=== PATIENT | female | born 1985 | race African-American/Black ===

== ENCOUNTER 2016-05-27 21:12 | Inpatient (IN) | payer MEDICAID ==
[~2016-05-27] VITALS: Ht 182.9 cm; Wt 85.5 kg
[~2016-05-27 21:12] MED LIST: CARI-277 PO; FOLI1TAB6 PO; NOR10T PO; NORT25CA PO; ONDA4TAB5 PO
[2016-05-27 22:11] LABS: Basophils # (auto) 0.1 uL; Basophils % (auto) 0.9 % (0.0-2.0); DEFINITIVE VIEW TRANSMISSION; Eosinophils # (auto) 0.1 uL; Eosinophils % (auto) 0.9 % (0.0-7.0); Hematocrit 37.8 % (36.0-46.0); Hemoglobin 12.1 g/dL (12.2-16.2); Lymphocytes # (auto) 1.2 uL; Lymphocytes % (auto) 18.4 % (10.0-50.0); Mean Corpuscular Hemoglobin 24.3 pg (28.0-32.0); Mean Corpuscular Hgb Conc. 31.9 g/dL (32.0-36.0); Mean Corpuscular Volume 76.3 fL (80.0-100.0); Mean Platelet Volume 11.3 fL (7.4-10.4); Monocytes # (auto) 0.7 uL; Monocytes % (auto) 11.2 % (0.0-12.0); Neutrophils # (auto) 4.3 uL; Neutrophils % (auto) 68.6 % (37.0-80.0); Platelet Count (auto) 244 10^3/uL (140-450); Red Cell Distribution Width 16.7 % (11.6-16.0); SUSPECT VIEW TRANSMISSION; White Blood Cell 6.3 10^3/uL (4.4-10.8)
[2016-05-27 22:26] LABS: Albumin 3.6 g/dL (3.4-5.0); BUN/Creatinine Ratio 4.8; Calcium 8.6 mg/dL (8.5-10.1); Magnesium 2.1 mg/dL (1.6-2.6); Potassium 3.5 mmol/L (3.5-5.1); Total Protein 7.5 g/dL (6.4-8.2)
[2016-05-28] VITALS (7 sets, daily range): BP systolic 98–121; BP diastolic 44–84
[2016-05-28] MEDS ORDERED: SODIUM CHLORIDE 0.9% 1,000 ML IV ONE (01:21)
[2016-05-28] MEDS ORDERED: SODIUM CHLORIDE 0.9% 250 ML IV ONE (01:21)
[2016-05-28] MEDS ORDERED: ONDANSETRON HCL 4 MG/2 ML VIAL IV ONE (01:30)
[2016-05-28] MEDS ORDERED: MORPHINE SULFATE 4 MG/ML SYRG IV ONE (01:30)
[2016-05-28] MEDS ORDERED: HYDROmorphone HCL 2 MG/ML VL IV ONE ×2 (03:00→10:30)
[2016-05-28] MEDS ORDERED: HYDROcodone-ACET 5/325MG TAB PO PRN (04:30)
[2016-05-28] MEDS ORDERED: CARISOPRODOL 350 MG TAB PO PRN (04:30)
[2016-05-28] MEDS ORDERED: ONDANSETRON HCL 4 MG/2 ML VIAL IV PRN (04:30)
[2016-05-28] MEDS ORDERED: ACETAMINOPHEN 325 MG TAB PO PRN (04:30)
[2016-05-28] MEDS ORDERED: TEMAZEPAM 15 MG CAP PO PRN (04:30)
[2016-05-28] MEDS: SODIUM CHLORIDE 0.9% 1,000 ML IV SCH ×2 (04:35→17:58)
[2016-05-28] MEDS: KETOROLAC TROMETH 30 MG/ML 1ML VIAL IV PRN ×2 (08:03→23:27)
[2016-05-28] MEDS: FAMOTIDINE 20 MG TAB PO SCH ×2 (13:35→22:23)
[2016-05-28] MEDS: FOLIC ACID 1 MG TAB PO SCH (13:35)
[2016-05-28] MEDS ORDERED: AZITHROMYCIN 250 MG TAB PO ONE (13:45)
[2016-05-28] MEDS: HYDROmorphone HCL 2 MG/ML VL IV PRN ×2 (15:18→20:44)
[2016-05-28] MEDS: guaiFENesin-DEXTROMETHORPHAN 5ML SYR PO PRN ×2 (15:18→20:42)
[2016-05-28] MEDS: NORTRIPTYLINE HCL 10 MG CAP PO SCH (22:24)
[2016-05-29] MEDS: HYDROmorphone HCL 2 MG/ML VL IV PRN ×5 (02:09→21:32)
[2016-05-29 05:00] VITALS: BP 109/53
[2016-05-29 06:03] LABS: Basophils # (auto) 0 uL; Basophils % (auto) 0.7 % (0.0-2.0); DEFINITIVE VIEW TRANSMISSION; Eosinophils # (auto) 0.1 uL; Eosinophils % (auto) 2.8 % (0.0-7.0); Hematocrit 32.7 % (36.0-46.0); Hemoglobin 10.4 g/dL (12.2-16.2); Lymphocytes # (auto) 1.2 uL; Lymphocytes % (auto) 32.3 % (10.0-50.0); Mean Corpuscular Hemoglobin 24.8 pg (28.0-32.0); Mean Corpuscular Hgb Conc. 31.7 g/dL (32.0-36.0); Mean Corpuscular Volume 78.3 fL (80.0-100.0); Mean Platelet Volume 11.6 fL (7.4-10.4); Monocytes # (auto) 0.5 uL; Monocytes % (auto) 14.2 % (0.0-12.0); Neutrophils # (auto) 1.9 uL; Platelet Count (auto) 187 10^3/uL (140-450); Red Cell Distribution Width 16.2 % (11.6-16.0); White Blood Cell 3.8 10^3/uL (4.4-10.8)
[2016-05-29 06:26] LABS: Potassium 3.6 mmol/L (3.5-5.1)
[2016-05-29 06:31] LABS: Albumin 2.8 g/dL (3.4-5.0); BUN/Creatinine Ratio 7.1; Calcium 7.9 mg/dL (8.5-10.1); Magnesium 2.2 mg/dL (1.6-2.6)
[2016-05-29 06:43] LABS: Bilirubin, Total 1.5 mg/dL (0.2-1.0); Total Protein 6.1 g/dL (6.4-8.2)
[2016-05-29 08:46] VITALS: BP 128/73
[2016-05-29] MEDS: SODIUM CHLORIDE 0.9% 1,000 ML IV SCH ×2 (09:21→20:43)
[2016-05-29] MEDS: AZITHROMYCIN 250 MG TAB PO SCH (09:21)
[2016-05-29] MEDS: FOLIC ACID 1 MG TAB PO SCH (09:22)
[2016-05-29] MEDS: FAMOTIDINE 20 MG TAB PO SCH ×2 (09:22→21:32)
[2016-05-29 11:54] VITALS: BP 132/76
[2016-05-29 16:28] VITALS: BP 116/80
[2016-05-29 20:00] VITALS: BP 138/87
[2016-05-29] MEDS: guaiFENesin-DEXTROMETHORPHAN 5ML SYR PO PRN (21:32)
[2016-05-29] MEDS: NORTRIPTYLINE HCL 10 MG CAP PO SCH (21:32)
[2016-05-29 22:02] VITALS: BP 138/87
[2016-05-30] MEDS: HYDROmorphone HCL 2 MG/ML VL IV PRN ×3 (02:04→12:00)
[2016-05-30 05:00] VITALS: BP 114/63
[2016-05-30] MEDS: SODIUM CHLORIDE 0.9% 1,000 ML IV SCH (05:57)
[2016-05-30 06:03] LABS: Basophils # (auto) 0 uL; Basophils % (auto) 0.4 % (0.0-2.0); DEFINITIVE VIEW TRANSMISSION; Eosinophils # (auto) 0.1 uL; Eosinophils % (auto) 2.2 % (0.0-7.0); Hematocrit 33.4 % (36.0-46.0); Hemoglobin 10.7 g/dL (12.2-16.2); Lymphocytes # (auto) 1.7 uL; Lymphocytes % (auto) 45.1 % (10.0-50.0); Mean Corpuscular Hemoglobin 24.6 pg (28.0-32.0); Mean Corpuscular Hgb Conc. 31.9 g/dL (32.0-36.0); Mean Corpuscular Volume 77.2 fL (80.0-100.0); Mean Platelet Volume 11.4 fL (7.4-10.4); Monocytes # (auto) 0.4 uL; Monocytes % (auto) 10.4 % (0.0-12.0); Neutrophils # (auto) 1.6 uL; Neutrophils % (auto) 41.9 % (37.0-80.0); Platelet Count (auto) 203 10^3/uL (140-450); Red Cell Distribution Width 16.1 % (11.6-16.0); SUSPECT VIEW TRANSMISSION; White Blood Cell 3.9 10^3/uL (4.4-10.8)
[2016-05-30 06:27] LABS: Bilirubin, Total 1.1 mg/dL (0.2-1.0); Total Protein 6.3 g/dL (6.4-8.2)
[2016-05-30 06:28] LABS: Bilirubin, Direct 0.3 mg/dL (0-0.2)
[2016-05-30 08:15] VITALS: BP 120/74
[2016-05-30] MEDS: AZITHROMYCIN 250 MG TAB PO SCH (09:44)
[2016-05-30] MEDS: FOLIC ACID 1 MG TAB PO SCH (09:45)
[2016-05-30] MEDS: FAMOTIDINE 20 MG TAB PO SCH (09:45)
[2016-05-30] MEDS ORDERED: AZI250T PO (13:37)
== END 2016-05-30 14:59 | disposition home or self-care (01) | DRG 662 ==
LOC: ER 21:28 → OVERFLOW 21:29 → WEST WING 05-28 05:13
PROVIDERS: ADMIT Nurse Practitioner; ATTEND Internal Medicine
DX: D57.00 Hb-SS disease with crisis, unspecified (principal); E86.0 Dehydration; F17.210 Nicotine dependence, cigarettes, uncomplicated; J20.9 Acute bronchitis, unspecified; Z82.49 Family history of ischemic heart disease and other diseases of the circulatory system; Z83.3 Family history of diabetes mellitus; Z90.49 Acquired absence of other specified parts of digestive tract; Z71.6 Tobacco abuse counseling
CPT/HCPCS: 36415; 71020; 80053; 80076; 83735; 84484; 84702; 85025; 85045; 85652; 96361; 96374; 96375; 96376; J1885; J2405

== ENCOUNTER 2016-10-01 14:51 | Inpatient (IN) | payer MEDICAID ==
[~2016-10-01] VITALS: Ht 185.4 cm; Wt 93.4 kg
[~2016-10-01 14:51] MED LIST changes: +AZI250T PO; -CARI-277 PO; -NOR10T PO; -NORT25CA PO; -ONDA4TAB5 PO
[2016-10-01 16:03] LABS: Basophils # (auto) 0.1 uL; Basophils % (auto) 0.9 % (0.0-2.0); CONDITION Y; DEFINITIVE Y; Eosinophils # (auto) 0.2 uL; Eosinophils % (auto) 2.2 % (0.0-7.0); Hematocrit 36.1 % (36.0-46.0); Hemoglobin 11.6 g/dL (12.2-16.2); Lymphocytes % (auto) 23.7 % (10.0-50.0); Mean Corpuscular Hemoglobin 24.9 pg (28.0-32.0); Mean Corpuscular Hgb Conc. 32.3 g/dL (32.0-36.0); Mean Corpuscular Volume 77.1 fL (80.0-100.0); Mean Platelet Volume 11.5 fL (7.4-10.4); Monocytes # (auto) 0.4 uL; Neutrophils # (auto) 5.7 uL; Neutrophils % (auto) 68.2 % (37.0-80.0); Platelet Count (auto) 249 10^3/uL (140-450); SUSPECT Y; White Blood Cell 8.3 10^3/uL (4.4-10.8)
[2016-10-01 16:17] LABS: Albumin 3.6 g/dL (3.4-5.0); BUN/Creatinine Ratio 9.1; Calcium 8.4 mg/dL (8.5-10.1)
[2016-10-01 16:20] LABS: Total Protein 7.2 g/dL (6.4-8.2)
[2016-10-01] MEDS ORDERED: SODIUM CHLORIDE 0.9% 1,000 ML IVB ONE (20:24)
[2016-10-01] MEDS ORDERED: ONDANSETRON HCL 4 MG/2 ML VIAL IV ONE (20:30)
[2016-10-01] MEDS ORDERED: HYDROmorphone HCL 2 MG/ML VL IV ONE (20:30)
[2016-10-01] MEDS ORDERED: SODIUM CHLORIDE 0.9% 1,000 ML IV ONE (20:45)
[2016-10-01] MEDS ORDERED: ACETAMINOPHEN 325 MG TAB PO PRN (22:00)
[2016-10-01] MEDS ORDERED: TEMAZEPAM 15 MG CAP PO PRN (22:00)
[2016-10-01] MEDS ORDERED: MORPHINE SULF INJ 2 MG/ML SYRINGE 1ML IV PRN (22:00)
[2016-10-01 22:02] LABS: INR 1.01 (0.9-1.15); Partial Thromboplastin Time 27.1 sec (22.64-33.71)
[2016-10-01] MEDS: ENOXAPARIN SOD 40 MG/0.4 ML SYRINGE SC SCH (23:02)
[2016-10-01] MEDS: FAMOTIDINE 20 MG TAB PO SCH (23:02)
[2016-10-01] MEDS: SODIUM CHLORIDE 0.9% 1,000 ML IV SCH (23:10)
[2016-10-01 23:35] VITALS: BP 139/86
[2016-10-01 23:48] LABS: Urine Bilirubin Negative (Negative); Urine Blood Negative /uL (Negative); Urine Color Yellow (Yellow); Urine Glucose Normal (Normal); Urine Ketone Negative (Negative); Urine Nitrite Negative (Negative); Urine RBC <1 /hpf (0 - 4); Urine Squamous Epithelial Cell FEW /hpf (<5); Urine Urobilinogen Normal (Negative)
[2016-10-02] VITALS (7 sets, daily range): BP systolic 119–141; BP diastolic 63–86
[2016-10-02] MEDS: MORPHINE SULF INJ 2 MG/ML SYRINGE 1ML IV PRN ×3 (00:46→05:55)
[2016-10-02] MEDS: ONDANSETRON HCL 4 MG/2 ML VIAL IV PRN ×3 (00:47→05:55)
[2016-10-02] MEDS: FAMOTIDINE 20 MG TAB PO SCH ×2 (09:41→21:05)
[2016-10-02] MEDS: ENOXAPARIN SOD 40 MG/0.4 ML SYRINGE SC SCH (09:41)
[2016-10-02] MEDS: SODIUM CHLORIDE 0.9% 1,000 ML IV SCH ×2 (09:49→23:23)
[2016-10-02] MEDS ORDERED: MONTELUKAST SODIUM 10 MG TAB PO ONE (12:00)
[2016-10-02] MEDS: HYDROmorphone HCL 2 MG/ML VL IV PRN ×3 (12:34→21:05)
[2016-10-02 13:13] LABS: Basophils # (auto) 0 uL; Basophils % (auto) 0.5 % (0.0-2.0); CONDITION Y; DEFINITIVE Y; Eosinophils # (auto) 0.1 uL; Eosinophils % (auto) 2.1 % (0.0-7.0); Hematocrit 34.1 % (36.0-46.0); Hemoglobin 11.2 g/dL (12.2-16.2); Lymphocytes # (auto) 1.2 uL; Lymphocytes % (auto) 17.4 % (10.0-50.0); Mean Corpuscular Hemoglobin 25.2 pg (28.0-32.0); Mean Corpuscular Hgb Conc. 32.9 g/dL (32.0-36.0); Mean Corpuscular Volume 76.6 fL (80.0-100.0); Mean Platelet Volume 11.2 fL (7.4-10.4); Monocytes # (auto) 0.4 uL; Monocytes % (auto) 5.5 % (0.0-12.0); Neutrophils # (auto) 5.3 uL; Neutrophils % (auto) 74.5 % (37.0-80.0); Platelet Count (auto) 212 10^3/uL (140-450); SUSPECT Y; White Blood Cell 7.1 10^3/uL (4.4-10.8)
[2016-10-02 13:22] LABS: BUN/Creatinine Ratio 8.8; Calcium 8.2 mg/dL (8.5-10.1)
[2016-10-03] MEDS: HYDROmorphone HCL 2 MG/ML VL IV PRN ×5 (01:37→20:43)
[2016-10-03 05:00] VITALS: BP 145/75
[2016-10-03 06:53] LABS: Basophils # (auto) 0 uL; Basophils % (auto) 0.5 % (0.0-2.0); CONDITION AutoValidated; DEFINITIVE SEE PRINTOUT; Eosinophils # (auto) 0.2 uL; Eosinophils % (auto) 2.5 % (0.0-7.0); Hematocrit 32.9 % (36.0-46.0); Hemoglobin 10.9 g/dL (12.2-16.2); Lymphocytes # (auto) 0.9 uL; Lymphocytes % (auto) 12.7 % (10.0-50.0); Mean Corpuscular Hgb Conc. 33.3 g/dL (32.0-36.0); Mean Platelet Volume 11.6 fL (7.4-10.4); Monocytes # (auto) 0.4 uL; Monocytes % (auto) 5.1 % (0.0-12.0); Neutrophils # (auto) 5.9 uL; Neutrophils % (auto) 79.2 % (37.0-80.0); Platelet Count (auto) 229 10^3/uL (140-450); Red Cell Distribution Width 16.4 % (11.6-16.0); SUSPECT SEE PRINTOUT; White Blood Cell 7.4 10^3/uL (4.4-10.8)
[2016-10-03 07:17] LABS: Albumin 3.4 g/dL (3.4-5.0); Calcium 8.1 mg/dL (8.5-10.1); Potassium 4.2 mmol/L (3.5-5.1)
[2016-10-03 07:38] LABS: Total Protein 6.7 g/dL (6.4-8.2)
[2016-10-03 08:00] VITALS: BP 133/90
[2016-10-03 09:00] VITALS: BP 133/90
[2016-10-03] MEDS: ENOXAPARIN SOD 40 MG/0.4 ML SYRINGE SC SCH (10:08)
[2016-10-03] MEDS: FAMOTIDINE 20 MG TAB PO SCH ×2 (10:08→22:36)
[2016-10-03] MEDS: SODIUM CHLORIDE 0.9% 1,000 ML IV SCH (11:29)
[2016-10-03 13:00] VITALS: BP 117/71
[2016-10-03] MEDS: HYDROcodone-ACET 5/325MG TAB PO PRN ×3 (13:05→22:36)
[2016-10-03 17:00] VITALS: BP 105/59
[2016-10-03 22:00] VITALS: BP 130/74
[2016-10-04] MEDS: SODIUM CHLORIDE 0.9% 1,000 ML IV SCH ×2 (00:13→22:35)
[2016-10-04] MEDS: HYDROmorphone HCL 2 MG/ML VL IV PRN ×6 (00:13→21:08)
[2016-10-04 04:52] VITALS: BP 132/77
[2016-10-04 08:00] VITALS: BP 132/77
[2016-10-04 09:00] VITALS: BP 151/70
[2016-10-04] MEDS: FAMOTIDINE 20 MG TAB PO SCH ×2 (09:22→21:08)
[2016-10-04] MEDS: ENOXAPARIN SOD 40 MG/0.4 ML SYRINGE SC SCH (09:22)
[2016-10-04] MEDS: HYDROcodone-ACET 5/325MG TAB PO PRN (10:59)
[2016-10-04 13:00] VITALS: BP_SYST 113; BP_SYST 125; BP_DIAS 62; BP_DIAS 79
[2016-10-04 22:00] VITALS: BP 133/79
[2016-10-05] MEDS: HYDROmorphone HCL 2 MG/ML VL IV PRN ×3 (00:11→13:31)
[2016-10-05] MEDS: SODIUM CHLORIDE 0.9% 1,000 ML IV SCH (05:55)
[2016-10-05 06:00] VITALS: BP 134/78
[2016-10-05 08:00] VITALS: BP 125/85
[2016-10-05 09:00] VITALS: BP_SYST 129; BP_SYST 134; BP_DIAS 64; BP_DIAS 85
[2016-10-05] MEDS ORDERED: FOLIC ACID 1 MG TAB PO SCH (10:00)
[2016-10-05] MEDS: FAMOTIDINE 20 MG TAB PO SCH (10:19)
[2016-10-05] MEDS: ENOXAPARIN SOD 40 MG/0.4 ML SYRINGE SC SCH (10:19)
[2016-10-05 13:00] VITALS: BP 126/72
[2016-10-05 14:09] VITALS: BP 129/65
== END 2016-10-05 14:55 | disposition home or self-care (01) | DRG 662 ==
LOC: ER 14:51 → OVERFLOW 14:52 → WEST WING 23:35
PROVIDERS: ADMIT Internal Medicine; ATTEND Family Medicine
DX: D57.00 Hb-SS disease with crisis, unspecified (principal); F17.210 Nicotine dependence, cigarettes, uncomplicated; D63.8 Anemia in other chronic diseases classified elsewhere; Z82.49 Family history of ischemic heart disease and other diseases of the circulatory system; Z83.3 Family history of diabetes mellitus; Z90.49 Acquired absence of other specified parts of digestive tract; Z71.89 Other specified counseling
CPT/HCPCS: 36415; 71010; 80048; 80053; 81001; 81025; 83735; 85025; 85610; 85730; 94761; 96361; 96374; 96375; J2405

== ENCOUNTER 2018-01-21 23:12 | Emergency (ER) | payer MEDICAID ==
[~2018-01-21] VITALS: Ht 182.9 cm; Wt 95.3 kg
[~2018-01-21 23:12] MED LIST changes: -AZI250T PO; +AZIT250T8 PO
[2018-01-21 23:30] VITALS: BP 153/88
[2018-01-21 23:55] LABS: Urine Bacteria NONE SEEN /hpf (None Seen); Urine Blood Negative /uL (Negative); Urine Specific Gravity 1.007 (1.001-1.035); Urine WBC 2 /hpf (0 - 5)
[2018-01-22] MEDS ORDERED: AZITHROMYCIN 250 MG TAB PO ONE (01:15)
[2018-01-22] MEDS ORDERED: PHENAZOPYRIDINE HCL 100 MG TAB PO ONE (01:15)
[2018-01-22] MEDS ORDERED: cefTRIAXone SOD 1,000 MG VL IM ONE (01:15)
== END 2018-01-22 01:39 | disposition home or self-care (01) ==
LOC: ER 23:12
DX: N39.0 Urinary tract infection, site not specified (principal); F17.210 Nicotine dependence, cigarettes, uncomplicated; Z90.49 Acquired absence of other specified parts of digestive tract
CPT/HCPCS: 81001; 96372; 99283; J0696

== ENCOUNTER 2018-04-06 16:55 | Emergency (ER) | payer MEDICAID ==
[~2018-04-06] VITALS: Ht 182.9 cm; Wt 99.8 kg
[2018-04-06 17:43] LABS: Basophils # (auto) 0.1 uL; Eosinophils # (auto) 0.2 uL; Lymphocytes # (auto) 1.9 uL; Monocytes # (auto) 0.4 uL
[2018-04-06 17:45] LABS: Basophils % (auto) 1.3 % (0.0-2.0); Eosinophils % (auto) 2.4 % (0.0-7.0); Hematocrit 36.8 % (36.0-46.0); Lymphocytes % (auto) 21.9 % (10.0-50.0); Mean Corpuscular Hemoglobin 24.7 pg (28.0-32.0); Mean Corpuscular Hgb Conc. 32.8 g/dL (32.0-36.0); Mean Corpuscular Volume 75.3 fL (80.0-100.0); Monocytes % (auto) 4.8 % (0.0-12.0); Neutrophils % (auto) 69.6 % (37.0-80.0); Nucleated Red Blood Cells % 0.3 %; Platelet Count (auto) 237 10^3/uL (140-450); Red Blood Cells 4.88 10^6/uL (4.0-5.20); Red Cell Distribution Width 17.7 % (11.8-14.3); White Blood Cell 8.6 10^3/uL (4.4-10.8)
[2018-04-06 17:59] LABS: Albumin 3.6 g/dL (3.4-5.0); Calcium 8.4 mg/dL (8.5-10.1); Potassium 3.9 mmol/L (3.5-5.1)
[2018-04-06 18:02] LABS: BUN/Creatinine Ratio 8.2; Bilirubin, Total 0.7 mg/dL (0.2-1.0); Total Protein 7.3 g/dL (6.4-8.2)
[2018-04-06] MEDS ORDERED: KETOROLAC TROMETH 30 MG/ML 1ML VIAL IV ONE (19:15)
[2018-04-06] MEDS ORDERED: SODIUM CHLORIDE 0.9% 1,000 ML IV ONE ×2 (19:15→22:15)
[2018-04-06] MEDS ORDERED: MORPHINE SULFATE 4 MG/ML SYR/VIAL IV ONE ×2 (22:15→23:00)
[2018-04-06] MEDS ORDERED: ONDANSETRON HCL 4 MG/2 ML VIAL ONE (22:32)
[2018-04-06] MEDS ORDERED: ONDANSETRON HCL 4 MG/2 ML VIAL IV ONE (22:45)
[2018-04-06 23:33] LABS: Urine Pregnacy Test Negative (Negative)
[2018-04-06 23:37] LABS: Urine Bacteria FEW /hpf (None Seen); Urine Blood Negative /uL (Negative); Urine Specific Gravity 1.009 (1.001-1.035); Urine WBC 1 /hpf (0 - 5)
[2018-04-06 23:48] LABS: Alcohol, Urine < 3.0 mg/dL (0-5); Amphetamine Screen, Urine NEGATIVE (NEGATIVE); Barbiturate Scree,Urine NEGATIVE (NEGATIVE); Benzodiazephine Screen, Urine NEGATIVE (NEGATIVE); Cannabinoid Screen, Urine NEGATIVE (NEGATIVE); Cocaine Screen, Urine NEGATIVE (NEGATIVE); Opiate Scree,Urine POSITIVE (NEGATIVE); Phencyclidine Screen, Urine NEGATIVE (NEGATIVE)
[2018-04-07 00:03] VITALS: BP 112/70
== END 2018-04-07 02:15 | disposition home or self-care (01) ==
LOC: ER 17:12
DX: D57.00 Hb-SS disease with crisis, unspecified (principal); F17.210 Nicotine dependence, cigarettes, uncomplicated; Z90.49 Acquired absence of other specified parts of digestive tract
CPT/HCPCS: 36415; 71045; 80053; 80307; 81001; 81025; 85025; 85045; 93005; 96361; 96374; 96375; 96376; 99284; J1885; J2270; J2405; J7030

== ENCOUNTER 2018-10-18 14:55 | Emergency (ER) | payer MEDICAID ==
[~2018-10-18] VITALS: Ht 182.9 cm; Wt 112.5 kg
[2018-10-18 15:49] VITALS: BP 127/73
[2018-10-18] MEDS ORDERED: LIDOCAINE 1% HCL (LOCAL ANESTH.) INJ 20ML MDV IJ ONE (16:00)
[2018-10-18] MEDS ORDERED: BACITRACIN TOP OINT 1 UD PKG TOP ONE ×2 (16:41→17:00)
== END 2018-10-18 17:59 | disposition home or self-care (01) ==
LOC: ER 14:55
DX: S90.111A Contusion of right great toe without damage to nail, initial encounter (principal); S91.201A Unspecified open wound of right great toe with damage to nail, initial encounter; F17.210 Nicotine dependence, cigarettes, uncomplicated; Z90.49 Acquired absence of other specified parts of digestive tract; X58.XXXA Exposure to other specified factors, initial encounter; Y93.89 Activity, other specified; Y99.8 Other external cause status; Y92.89 Other specified places as the place of occurrence of the external cause
CPT/HCPCS: 11730; 99283; J2001

== ENCOUNTER 2018-11-04 18:12 | Observation (INO) | payer MEDICAID ==
[~2018-11-04] VITALS: Ht 182.9 cm; Wt 108.9 kg
[2018-11-04] MEDS ORDERED: LACTATED RINGER'S 1,000 ML IV ONE (19:00)
[2018-11-04] MEDS ORDERED: ONDANSETRON HCL 4 MG/2 ML VIAL IV ONE (19:00)
[2018-11-04] MEDS ORDERED: ACETAMINOPHEN 325 MG TAB PO ONE (19:00)
[2018-11-04 19:11] LABS: Urine Bacteria NONE SEEN /hpf (None Seen); Urine Blood Negative /uL (Negative); Urine Specific Gravity 1.011 (1.001-1.035); Urine WBC 3 /hpf (0 - 5)
[2018-11-04 19:22] LABS: Alcohol, Urine < 3.0 mg/dL (0-5); Amphetamine Screen, Urine NEGATIVE (NEGATIVE); Barbiturate Scree,Urine NEGATIVE (NEGATIVE); Benzodiazephine Screen, Urine NEGATIVE (NEGATIVE); Cannabinoid Screen, Urine NEGATIVE (NEGATIVE); Cocaine Screen, Urine NEGATIVE (NEGATIVE); Opiate Scree,Urine NEGATIVE (NEGATIVE); Phencyclidine Screen, Urine NEGATIVE (NEGATIVE)
[2018-11-04 20:20] LABS: Albumin 2.6 g/dL (3.4-5.0); BUN/Creatinine Ratio 4.2; Calcium 8.4 mg/dL (8.5-10.1); Potassium 3.7 mmol/L (3.5-5.1)
[2018-11-04 20:21] LABS: Bilirubin, Total 1.4 mg/dL (0.2-1.0); Total Protein 6.3 g/dL (6.4-8.2)
== END 2018-11-04 20:50 | disposition home or self-care (01) | DRG 566 ==
LOC: LDRP 18:12
PROVIDERS: ADMIT Specialist; ATTEND Specialist
DX: O99.012 Anemia complicating pregnancy, second trimester (principal); D57.1 Sickle-cell disease without crisis; O26.893 Other specified pregnancy related conditions, third trimester; R10.9 Unspecified abdominal pain; R11.2 Nausea with vomiting, unspecified; R19.7 Diarrhea, unspecified; Z3A.25 25 weeks gestation of pregnancy
CPT/HCPCS: 36415; 59025; 80053; 80307; 81001; 81002; 96374; G0378; J2405

== ENCOUNTER 2019-01-30 23:23 | Emergency (ER) | payer MEDICAID ==
[~2019-01-30] VITALS: Ht 182.9 cm; Wt 108.9 kg
[2019-01-31 00:09] LABS: Basophils # (auto) 0.1 uL; Eosinophils # (auto) 0.1 uL; Mean Corpuscular Volume 80.9 fL (80.0-100.0); Monocytes # (auto) 0.5 uL; Nucleated Red Blood Cells % 0.1 %
[2019-01-31 00:12] LABS: Basophils % (auto) 0.6 % (0.0-2.0); Eosinophils % (auto) 0.8 % (0.0-7.0); Hematocrit 34.3 % (36.0-46.0); Hemoglobin 11.5 g/dL (12.2-16.2); Lymphocytes # (auto) 0.9 uL; Lymphocytes % (auto) 7.5 % (10.0-50.0); Mean Corpuscular Hgb Conc. 33.4 g/dL (32.0-36.0); Monocytes % (auto) 4.4 % (0.0-12.0); Neutrophils # (auto) 10.4 uL; Neutrophils % (auto) 86.7 % (37.0-80.0); Platelet Count (auto) 263 10^3/uL (140-450); Red Blood Cells 4.24 10^6/uL (4.0-5.20); Red Cell Distribution Width 15.8 % (11.8-14.3); White Blood Cell 11.9 10^3/uL (4.4-10.8)
[2019-01-31 00:19] LABS: Albumin 2.9 g/dL (3.4-5.0); BUN/Creatinine Ratio 9.1; Calcium 8.4 mg/dL (8.5-10.1); Potassium 3.8 mmol/L (3.5-5.1)
[2019-01-31 00:21] LABS: Total Protein 6.7 g/dL (6.4-8.2)
[2019-01-31 01:25] LABS: Urine Bacteria MOD /hpf (None Seen); Urine Blood 2+ /uL (Negative); Urine Specific Gravity 1.009 (1.001-1.035); Urine WBC 58 /hpf (0 - 5)
[2019-01-31] MEDS ORDERED: ONDANSETRON HCL 4 MG/2 ML VIAL IV ONE (03:00)
[2019-01-31] MEDS ORDERED: SODIUM CHLORIDE 0.9% 1,000 ML IV ONE (03:00)
[2019-01-31] MEDS ORDERED: FAMOTIDINE (10MG/ML) 2ML VL IV ONE (03:00)
[2019-01-31 03:37] VITALS: BP 139/71
== END 2019-01-31 04:31 | disposition home or self-care (01) ==
LOC: ER 23:25
DX: K29.00 Acute gastritis without bleeding (principal); F17.210 Nicotine dependence, cigarettes, uncomplicated; Z90.49 Acquired absence of other specified parts of digestive tract; Z79.899 Other long term (current) drug therapy
CPT/HCPCS: 36415; 80053; 81001; 85025; 85045; 96361; 96374; 96375; 99283; J2405; J3490

== ENCOUNTER 2019-09-24 09:08 | Emergency (ER) | payer MEDICAID ==
[~2019-09-24] VITALS: Ht 182.9 cm; Wt 108.9 kg
[~2019-09-24 09:08] MED LIST changes: +ONDA-144 PO
[2019-09-24 09:10] VITALS: BP 126/88
== END 2019-09-24 09:56 | disposition home or self-care (01) ==
LOC: ER 09:08
DX: T16.2XXA Foreign body in left ear, initial encounter (principal); Z90.49 Acquired absence of other specified parts of digestive tract; X58.XXXA Exposure to other specified factors, initial encounter; Y93.89 Activity, other specified; Y92.89 Other specified places as the place of occurrence of the external cause; Y99.8 Other external cause status

== ENCOUNTER 2019-10-13 19:18 | Emergency (ER) | payer MEDICAID ==
[~2019-10-13] VITALS: Ht 182.9 cm; Wt 99.8 kg
[2019-10-13] MEDS ORDERED: ACETAMINOPHEN 325 MG TAB PO ONE (21:00)
[2019-10-13] MEDS ORDERED: CLINDAMYCIN HCL 150 MG CAP PO ONE (21:00)
[2019-10-13 21:48] VITALS: BP 122/88
[2019-10-13] MEDS ORDERED: CLINDAMYCIN HCL 150 MG CAP ONE ×2 (22:17→22:18)
== END 2019-10-13 23:00 | disposition home or self-care (01) ==
LOC: ER 19:18
DX: K05.20 Aggressive periodontitis, unspecified (principal)
CPT/HCPCS: 81002; 81025

== ENCOUNTER 2019-12-28 12:38 | Emergency (ER) | payer MEDICAID ==
[~2019-12-28] VITALS: Ht 182.9 cm; Wt 99.8 kg
[2019-12-28 12:50] VITALS: BP 118/82
[2019-12-28 13:46] LABS: Basophils # (auto) 0.1 10 ^3/uL (0-0.2); Eosinophils # (auto) 0.1 10 ^3/uL (0-0.8); Lymphocytes # (auto) 1.1 10 ^3/uL (0.4-5.4); Mean Corpuscular Hemoglobin 25.2 pg (28.0-32.0); Monocytes # (auto) 0.3 10 ^3/uL (0-1.3)
[2019-12-28 13:48] LABS: Basophils % (auto) 0.9 % (0.0-2.0); Eosinophils % (auto) 1.2 % (0.0-7.0); Hematocrit 38.5 % (36.0-46.0); Lymphocytes % (auto) 15.9 % (10.0-50.0); Mean Corpuscular Hgb Conc. 33.7 g/dL (32.0-36.0); Mean Corpuscular Volume 74.8 fL (80.0-100.0); Monocytes % (auto) 4.7 % (0.0-12.0); Neutrophils # (auto) 5.1 10 ^3/uL (1.6-8.6); Neutrophils % (auto) 77.3 % (37.0-80.0); Nucleated Red Blood Cells % 5.4 %; Platelet Count (auto) 244 10^3/uL (140-450); Red Blood Cells 5.15 10^6/uL (4.0-5.20); Red Cell Distribution Width 16.4 % (11.8-14.3); White Blood Cell 6.6 10^3/uL (4.4-10.8)
[2019-12-28 13:55] LABS: Urine Bacteria NONE SEEN /hpf (None Seen); Urine Blood 3+ /uL (Negative); Urine Specific Gravity 1.012 (1.001-1.035); Urine WBC 58 /hpf (0 - 5)
== END 2019-12-28 16:36 | disposition home or self-care (01) ==
LOC: ER 12:38
DX: O46.91 Antepartum hemorrhage, unspecified, first trimester (principal); O23.41 Unspecified infection of urinary tract in pregnancy, first trimester; O20.0 Threatened abortion; O99.331 Smoking (tobacco) complicating pregnancy, first trimester; Z3A.01 Less than 8 weeks gestation of pregnancy
CPT/HCPCS: 36415; 76801; 76817; 81001; 81025; 84702; 85025

== ENCOUNTER 2020-06-05 07:18 | Inpatient (IN) | payer MEDICAID ==
[~2020-06-05] VITALS: Ht 182.9 cm; Wt 99.8 kg
[2020-06-05] MEDS ORDERED: PROMETHAZINE HCL 25 MG/ML 1ML IV ONE (07:45)
[2020-06-05] MEDS ORDERED: HYDROmorphone HCL 2 MG/ML VL IV ONE (07:45)
[2020-06-05] MEDS ORDERED: SODIUM CHLORIDE 0.9% 1,000 ML IV ONE ×2 (07:45)
[2020-06-05 08:11] LABS: Basophils # (auto) 0.1 10 ^3/uL (0-0.2); Basophils % (auto) 0.9 % (0.0-2.0); Eosinophils # (auto) 0.1 10 ^3/uL (0-0.8); Eosinophils % (auto) 1.4 % (0.0-7.0); Hematocrit 33.3 % (36.0-46.0); Hemoglobin 11.2 g/dL (12.2-16.2); Lymphocytes # (auto) 1.9 10 ^3/uL (0.4-5.4); Mean Corpuscular Hemoglobin 24.5 pg (28.0-32.0); Mean Corpuscular Hgb Conc. 33.6 g/dL (32.0-36.0); Monocytes # (auto) 0.5 10 ^3/uL (0-1.3); Neutrophils # (auto) 6.5 10 ^3/uL (1.6-8.6); Neutrophils % (auto) 71.7 % (37.0-80.0); Nucleated Red Blood Cells % 1.4 %; Platelet Count (auto) 243 10^3/uL (140-450); Red Blood Cells 4.56 10^6/uL (4.0-5.20); Red Cell Distribution Width 16.3 % (11.8-14.3); White Blood Cell 9.1 10^3/uL (4.4-10.8)
[2020-06-05 08:25] LABS: Albumin 3.4 g/dL (3.4-5.0); BUN/Creatinine Ratio 7.6
[2020-06-05 08:27] LABS: Bilirubin, Total 0.9 mg/dL (0.2-1.0); Total Protein 6.8 g/dL (6.4-8.2)
[2020-06-05 10:01] LABS: Urine Bacteria NONE SEEN /hpf (None Seen); Urine Blood Negative /uL (Negative); Urine Specific Gravity 1.006 (1.001-1.035); Urine WBC 1 /hpf (0 - 5)
[2020-06-05] MEDS ORDERED: KETOROLAC TROMETH 30 MG/ML 1ML VIAL IV ONE (11:45)
[2020-06-05] MEDS ORDERED: ONDANSETRON HCL 4 MG/2 ML VIAL IV ONE (11:45)
[2020-06-05] MEDS ORDERED: METOCLOPRAMIDE HCL 5MG/ml INJ 2ml VIAL IV PRN (12:30)
[2020-06-05] MEDS ORDERED: ACETAMINOPHEN 325 MG TAB PO PRN (12:30)
[2020-06-05] MEDS ORDERED: MORPHINE SULF INJ 2 MG/ML SYRINGE 1ML IV PRN ×2 (12:30)
[2020-06-05] MEDS ORDERED: NITROGLYCERIN 0.4 MG SL TAB SL PRN (12:30)
[2020-06-05] MEDS ORDERED: HYDROcodone-ACET 5/325MG TAB PO PRN (12:30)
[2020-06-05] MEDS ORDERED: SODIUM CHLORIDE 0.9% 1,000 ML IV SCH ×2 (12:30→20:00)
[2020-06-05] MEDS ORDERED: ALUM & MAG HYDROX-SIMETH LIQ(MAALOX) 30 ML PO PRN (12:30)
[2020-06-05 16:30] VITALS: BP 107/68
[2020-06-05] MEDS ORDERED: TEMAZEPAM 15 MG CAP PO PRN (22:00)
== END 2020-06-05 17:31 | disposition left against medical advice (07) | DRG 351 ==
LOC: ER 07:18 → OVERFLOW 07:19
PROVIDERS: ADMIT Hospitalist; ATTEND Hospitalist
DX: M17.11 Unilateral primary osteoarthritis, right knee (principal); D57.419 Sickle-cell thalassemia, unspecified, with crisis; F17.210 Nicotine dependence, cigarettes, uncomplicated; E66.01 Morbid (severe) obesity due to excess calories; Z53.29 Procedure and treatment not carried out because of patient's decision for other reasons; Z90.49 Acquired absence of other specified parts of digestive tract; Z82.49 Family history of ischemic heart disease and other diseases of the circulatory system; Z68.30 Body mass index [BMI] 30.0-30.9, adult; Z79.899 Other long term (current) drug therapy
CPT/HCPCS: 36415; 71045; 73560; 73721; 80053; 81001; 85025; 85045; 96361; 96374; 96375; 99291; G0378; J1885; J2405

== ENCOUNTER 2020-07-24 09:45 | Emergency (ER) | payer MEDICAID ==
[~2020-07-24] VITALS: Ht 182.9 cm; Wt 99.8 kg
[2020-07-24 11:20] VITALS: BP 132/88
[2020-07-24] MEDS ORDERED: LIDOCAINE 1% HCL (LOCAL ANESTH.) INJ 20ML MDV IJ ONE (11:30)
[2020-07-24] MEDS ORDERED: BACITRACIN TOP OINT 1 UD PKG TOP ONE (12:08)
== END 2020-07-24 12:33 | disposition home or self-care (01) ==
LOC: ER 09:45
DX: S61.305A Unspecified open wound of left ring finger with damage to nail, initial encounter (principal); F17.210 Nicotine dependence, cigarettes, uncomplicated; Z90.49 Acquired absence of other specified parts of digestive tract; X58.XXXA Exposure to other specified factors, initial encounter; Y93.89 Activity, other specified; Y92.89 Other specified places as the place of occurrence of the external cause; Y99.8 Other external cause status
CPT/HCPCS: 11730; 99284; J2001

== ENCOUNTER 2021-06-16 07:08 | Emergency (ER) | payer MEDICAID ==
[~2021-06-16] VITALS: Ht 182.9 cm; Wt 99.8 kg
[2021-06-16 07:39] LABS: Basophils # (auto) 0.1 10 ^3/uL (0-0.2); Eosinophils # (auto) 0.2 10 ^3/uL (0-0.8); Hematocrit 34.4 % (36.0-46.0); Mean Corpuscular Hemoglobin 24.3 pg (28.0-32.0); Monocytes # (auto) 0.4 10 ^3/uL (0-1.3)
[2021-06-16 07:41] LABS: Basophils % (auto) 1.2 % (0.0-2.0); Hemoglobin 11.6 g/dL (12.2-16.2); Lymphocytes % (auto) 24.5 % (10.0-50.0); Mean Corpuscular Hgb Conc. 33.8 g/dL (32.0-36.0); Monocytes % (auto) 5.1 % (0.0-12.0); Neutrophils # (auto) 5.6 10 ^3/uL (1.6-8.6); Neutrophils % (auto) 67.2 % (37.0-80.0); Nucleated Red Blood Cells % 0.3 %; Red Blood Cells 4.78 10^6/uL (4.0-5.20); White Blood Cell 8.3 10^3/uL (4.4-10.8)
[2021-06-16 08:00] LABS: Albumin 3.6 g/dL (3.4-5.0); BUN/Creatinine Ratio 6.5; Bilirubin, Total 0.7 mg/dL (0.2-1.0); Calcium 8.6 mg/dL (8.5-10.1); Total Protein 7.4 g/dL (6.4-8.2)
[2021-06-16] MEDS ORDERED: SODIUM CHLORIDE 0.9% 500 ML IVB ONE (09:00)
[2021-06-16] MEDS ORDERED: HYDROmorphone HCL 2 MG/ML VL IV ONE ×5 (09:00→19:00)
[2021-06-16] MEDS ORDERED: SODIUM CHLORIDE 0.9% 1,000 ML IV ONE ×4 (09:00→19:00)
[2021-06-16 09:24] LABS: Magnesium 2.2 mg/dL (1.6-2.6)
[2021-06-16 09:26] LABS: Urine Bacteria FEW /hpf (None Seen); Urine Blood Negative /uL (Negative); Urine WBC 2 /hpf (0 - 5)
[2021-06-16] MEDS ORDERED: diphenhdrAMINE HCL 50 MG/1 ML VL IV ONE (19:00)
[2021-06-16 19:45] VITALS: BP 150/90
== END 2021-06-16 19:59 | disposition home or self-care (01) ==
LOC: ER 07:08
DX: D57.00 Hb-SS disease with crisis, unspecified (principal); D53.9 Nutritional anemia, unspecified; F17.210 Nicotine dependence, cigarettes, uncomplicated
CPT/HCPCS: 36415; 71046; 80053; 81001; 83690; 83735; 84484; 84702; 85025; 85045; 93005; 96361; 96374; 96376; 99285; J1170; J1200; J7030; J7040

== ENCOUNTER 2021-08-01 11:04 | Emergency (ER) | payer MEDICAID ==
[~2021-08-01] VITALS: Ht 182.9 cm; Wt 104.3 kg
[2021-08-01 11:31] LABS: Urine Bacteria NONE SEEN /hpf (None Seen); Urine Blood Negative /uL (Negative); Urine WBC <1 /hpf (0 - 5)
[2021-08-01 12:03] LABS: Basophils # (auto) 0.1 10 ^3/uL (0-0.2); Basophils % (auto) 0.7 % (0.0-2.0); Eosinophils # (auto) 0.1 10 ^3/uL (0-0.8); Hematocrit 36.7 % (36.0-46.0); Hemoglobin 12.5 g/dL (12.2-16.2); Lymphocytes # (auto) 1.3 10 ^3/uL (0.4-5.4); Lymphocytes % (auto) 13.9 % (10.0-50.0); Mean Corpuscular Volume 70.7 fL (80.0-100.0); Monocytes # (auto) 0.5 10 ^3/uL (0-1.3); Neutrophils # (auto) 7.3 10 ^3/uL (1.6-8.6); Neutrophils % (auto) 79.4 % (37.0-80.0); Nucleated Red Blood Cells % 0.1 %; Red Blood Cells 5.19 10^6/uL (4.0-5.20); Red Cell Distribution Width 17.9 % (11.8-14.3); White Blood Cell 9.2 10^3/uL (4.4-10.8)
[2021-08-01 12:07] LABS: Albumin 3.7 g/dL (3.4-5.0); Calcium 9.3 mg/dL (8.5-10.1); Potassium 3.7 mmol/L (3.5-5.1)
[2021-08-01 12:12] LABS: Bilirubin, Total 1.6 mg/dL (0.2-1.0)
[2021-08-01] MEDS ORDERED: ONDANSETRON HCL 4 MG/2 ML VIAL IV ONE ×3 (13:45→22:00)
[2021-08-01] MEDS ORDERED: SODIUM CHLORIDE 0.9% 1,000 ML IV ONE (13:45)
[2021-08-01] MEDS ORDERED: HYDROmorphone HCL 2 MG/ML VL IV ONE ×3 (13:45→22:00)
[2021-08-01 22:11] VITALS: BP 122/86
[2021-08-01] MEDS ORDERED: PERCOT PO (22:43)
== END 2021-08-01 22:56 | disposition home or self-care (01) ==
LOC: ER 11:04
DX: D57.00 Hb-SS disease with crisis, unspecified (principal); F17.210 Nicotine dependence, cigarettes, uncomplicated; Z90.49 Acquired absence of other specified parts of digestive tract; Z32.02 Encounter for pregnancy test, result negative
CPT/HCPCS: 36415; 71045; 80053; 81001; 81025; 83615; 85025; 85045; 93971; 96361; 96374; 96375; 96376; 99285; J1170; J2405; J7030

== ENCOUNTER 2023-03-05 10:16 | Inpatient (IN) | payer MEDICAID ==
[~2023-03-05] VITALS: Ht 182.9 cm; Wt 113.2 kg
[~2023-03-05 10:16] MED LIST changes: +AZIT-81 PO; -AZIT250T8 PO; +CEPH-510 PO; +FOLI-119 PO; -FOLI1TAB6 PO; +PERCOT PO
[2023-03-05] MEDS ORDERED: SODIUM CHLORIDE 0.9% 1,000 ML IV ONE ×4 (10:30→16:00)
[2023-03-05 11:14] LABS: Basophils # (auto) 0 10 ^3/uL (0-0.2); Basophils % (auto) 1.2 % (0.0-2.0); Eosinophils # (auto) 0.1 10 ^3/uL (0-0.8); Eosinophils % (auto) 1.9 % (0.0-7.0); Hematocrit 32.4 % (36.0-46.0); Hemoglobin 10.9 g/dL (12.2-16.2); Lymphocytes # (auto) 1.5 10 ^3/uL (0.4-5.4); Lymphocytes % (auto) 42.7 % (10.0-50.0); Mean Corpuscular Hemoglobin 24.8 pg (28.0-32.0); Mean Corpuscular Hgb Conc. 33.6 g/dL (32.0-36.0); Mean Corpuscular Volume 73.7 fL (80.0-100.0); Monocytes # (auto) 0.5 10 ^3/uL (0-1.3); Monocytes % (auto) 12.7 % (0.0-12.0); Neutrophils # (auto) 1.5 10 ^3/uL (1.6-8.6); Neutrophils % (auto) 41.5 % (37.0-80.0); Nucleated Red Blood Cells % 0.5 %; Red Cell Distribution Width 16.4 % (11.8-14.3); White Blood Cell 3.6 10^3/uL (4.4-10.8)
[2023-03-05 11:25] LABS: Alanine Aminotransferase 55 U/L (7-40); Albumin 4.2 g/dL (3.2-4.8); Alkaline Phosphatase 79 U/L (46-116); Anion Gap 5 (5-15); Aspartate Aminotransferase 30 U/L (13-40); BUN/Creatinine Ratio 7.2 (10.0-20.0); Bilirubin, Total 1.1 mg/dL (0.2-1.0); Blood Urea Nitrogen 6 mg/dL (9-23); Carbon Dioxide 29 mmol/L (20-30); Chloride 106 mmol/L (98-107); Glucose 119 mg/dL (74-106); Potassium 4.1 mmol/L (3.5-5.1); Sodium 140 mmol/L (136-145)
[2023-03-05 15:15] LABS: Urine Bacteria FEW /hpf (None Seen); Urine Blood Negative /uL (Negative); Urine Clarity Clear (Clear); Urine Color Yellow (Yellow); Urine Protein, UAD Negative (Negative); Urine Specific Gravity 1.013 (1.001-1.035); Urine Urobilinogen Normal (Negative); Urine WBC 4 /hpf (0 - 5)
[2023-03-05] MEDS ORDERED: KETOROLAC TROMETH 30 MG/ML 1ML VIAL IV ONE ×2 (16:00→17:00)
[2023-03-05] MEDS ORDERED: metroNIDAZOLE 500MG/100ML 100 ML IV ONE (16:15)
[2023-03-05] MEDS ORDERED: cefTRIAXone 1GM/50ML D5W 50 ML IV ONE (16:15)
[2023-03-05] MEDS ORDERED: ONDANSETRON HCL 4 MG/2 ML VIAL IV ONE (16:15)
[2023-03-05] MEDS ORDERED: ACETAMINOPHEN 325 MG TAB PO PRN (17:00)
[2023-03-05 17:21] LABS: CRP High Sensitivity 0.77 mg/dL (<1.0)
[2023-03-05 17:45] LABS: Erythrocyte Sedimentation Rate 28 mm/hr (0-20)
[2023-03-05 19:50] VITALS: PULSE 71; RESP 16; O2SAT 100
[2023-03-05] MEDS: SODIUM CHLORIDE 0.9% 1,000 ML IV SCH (20:13)
[2023-03-05] MEDS: MORPHINE SULFATE INJ 2 MG/ml SYRG IV PRN (20:13)
[2023-03-05] MEDS: metroNIDAZOLE 500MG/100ML 100 ML IV SCH (22:00)
[2023-03-06] MEDS: SODIUM CHLORIDE 0.9% 1,000 ML IV SCH ×3 (03:00→23:00)
[2023-03-06] MEDS: MORPHINE SULFATE INJ 2 MG/ml SYRG IV PRN ×3 (03:02→15:59)
[2023-03-06] MEDS: metroNIDAZOLE 500MG/100ML 100 ML IV SCH ×3 (06:31→22:21)
[2023-03-06 07:49] LABS: Basophils # (auto) 0 10 ^3/uL (0-0.2); Eosinophils # (auto) 0.1 10 ^3/uL (0-0.8); Eosinophils % (auto) 1.7 % (0.0-7.0); Hemoglobin 10.2 g/dL (12.2-16.2); Lymphocytes # (auto) 1.2 10 ^3/uL (0.4-5.4); Monocytes # (auto) 0.5 10 ^3/uL (0-1.3); White Blood Cell 4.8 10^3/uL (4.4-10.8)
[2023-03-06 07:51] LABS: Basophils % (auto) 0.5 % (0.0-2.0); Hematocrit 30.9 % (36.0-46.0); Lymphocytes % (auto) 25.2 % (10.0-50.0); Mean Corpuscular Hemoglobin 24.5 pg (28.0-32.0); Mean Corpuscular Hgb Conc. 32.9 g/dL (32.0-36.0); Mean Corpuscular Volume 74.3 fL (80.0-100.0); Monocytes % (auto) 9.7 % (0.0-12.0); Neutrophils % (auto) 62.9 % (37.0-80.0); Nucleated Red Blood Cells % 0.2 %; Red Blood Cells 4.16 10^6/uL (4.0-5.20); Red Cell Distribution Width 16.4 % (11.8-14.3)
[2023-03-06 08:03] LABS: Alanine Aminotransferase 48 U/L (7-40); Albumin 3.8 g/dL (3.2-4.8); Alkaline Phosphatase 67 U/L (46-116); Anion Gap 5 (5-15); Aspartate Aminotransferase 26 U/L (13-40); Bilirubin, Total 0.8 mg/dL (0.2-1.0); Calcium 8.2 mg/dL (8.5-10.1); Carbon Dioxide 26 mmol/L (20-30); Chloride 109 mmol/L (98-107); Glucose 102 mg/dL (74-106); Potassium 4.2 mmol/L (3.5-5.1); Sodium 140 mmol/L (136-145); Total Protein 6.4 g/dL (5.7-8.2)
[2023-03-06 08:07] LABS: BUN/Creatinine Ratio 7.5 (10.0-20.0); Blood Urea Nitrogen < 5 mg/dL (9-23)
[2023-03-06] MEDS: cefTRIAXone 1GM/50ML D5W 50 ML IV SCH (09:54)
[2023-03-06] MEDS: FOLIC ACID 1 MG TAB PO SCH (09:54)
[2023-03-06 14:08] VITALS: PULSE 78; RESP 17; O2SAT 98
[2023-03-06] MEDS ORDERED: HYDROmorphone HCL 2 MG/ML VL/or syr IV ONE (18:00)
[2023-03-06 18:53] VITALS: BP 127/83; PULSE 68; RESP 17; TEMP 98.2; O2SAT 94
[2023-03-06 20:00] VITALS: RESP 17; O2SAT 0
[2023-03-06 22:00] VITALS: BP 111/74; PULSE 77; RESP 20; TEMP 97.6; O2SAT 98
[2023-03-06] MEDS: HYDROcodone-ACET 5/325MG TAB PO PRN (22:21)
[2023-03-07] MEDS ORDERED: MORPHINE SULFATE INJ 2 MG/ml SYRG IV PRN (00:45)
[2023-03-07] MEDS: HYDROcodone-ACET 5/325MG TAB PO PRN ×3 (02:24→17:26)
[2023-03-07 05:00] VITALS: BP 111/72; PULSE 60; RESP 17; TEMP 97.3; O2SAT 95
[2023-03-07] MEDS: metroNIDAZOLE 500MG/100ML 100 ML IV SCH ×3 (05:22→21:23)
[2023-03-07] MEDS: SODIUM CHLORIDE 0.9% 1,000 ML IV SCH ×2 (08:47→15:53)
[2023-03-07] MEDS: HYDROmorphone HCL 2 MG/ML VL/or syr IV PRN ×5 (08:47→21:46)
[2023-03-07] MEDS: cefTRIAXone 1GM/50ML D5W 50 ML IV SCH (08:47)
[2023-03-07] MEDS: FOLIC ACID 1 MG TAB PO SCH (08:49)
[2023-03-07 09:00] VITALS: BP 131/81; PULSE 64; RESP 16; TEMP 98; O2SAT 98
[2023-03-07 13:00] VITALS: BP 132/101; PULSE 84; RESP 18; TEMP 98.4; O2SAT 100
[2023-03-07 16:51] VITALS: BP 148/88; PULSE 71; RESP 16; TEMP 97.8; O2SAT 100
[2023-03-07 20:00] VITALS: PULSE 63; PULSE 64; RESP 18; O2SAT 100
[2023-03-07 22:00] VITALS: BP 136/89; PULSE 70; RESP 22; TEMP 98.1; O2SAT 100
[2023-03-08] VITALS (9 sets, daily range): BP systolic 124–152; BP diastolic 78–98; PULSE 71–91; RESP 18–20; TEMP 97.7–99.9; O2SAT 98–100
[2023-03-08] MEDS: SODIUM CHLORIDE 0.9% 1,000 ML IV SCH ×4 (00:39→23:24)
[2023-03-08] MEDS: HYDROcodone-ACET 5/325MG TAB PO PRN ×3 (00:59→18:23)
[2023-03-08] MEDS: HYDROmorphone HCL 2 MG/ML VL/or syr IV PRN ×6 (03:32→21:26)
[2023-03-08] MEDS: metroNIDAZOLE 500MG/100ML 100 ML IV SCH ×3 (05:21→21:12)
[2023-03-08] MEDS: FOLIC ACID 1 MG TAB PO SCH (10:03)
[2023-03-08] MEDS: cefTRIAXone 1GM/50ML D5W 50 ML IV SCH (10:04)
[2023-03-08] MEDS: ONDANSETRON HCL 4 MG/2 ML VIAL IV PRN ×2 (14:07→18:22)
[2023-03-09] VITALS (7 sets, daily range): BP systolic 143–157; BP diastolic 93–102; PULSE 73–89; RESP 16–19; TEMP 98.2–99.2; O2SAT 100
[2023-03-09] MEDS: HYDROmorphone HCL 2 MG/ML VL/or syr IV PRN ×6 (02:14→21:05)
[2023-03-09] MEDS: SODIUM CHLORIDE 0.9% 1,000 ML IV SCH ×2 (05:15→13:53)
[2023-03-09] MEDS: metroNIDAZOLE 500MG/100ML 100 ML IV SCH ×3 (05:16→21:53)
[2023-03-09] MEDS: FOLIC ACID 1 MG TAB PO SCH (08:45)
[2023-03-09] MEDS: cefTRIAXone 1GM/50ML D5W 50 ML IV SCH (08:45)
[2023-03-09] MEDS: ONDANSETRON HCL 4 MG/2 ML VIAL IV PRN (08:46)
[2023-03-09] MEDS: HYDROcodone-ACET 5/325MG TAB PO PRN (08:46)
[2023-03-09 09:30] LABS: COVID19 ANTIGEN SOFIA FIA NEGATIVE (NEGATIVE)
[2023-03-09] MEDS ORDERED: hydrALAZINE HCL 20 MG/ML VL IV PRN (12:30)
[2023-03-09 16:05] LABS: Urine Bacteria NONE SEEN /hpf (None Seen); Urine Blood Negative /uL (Negative); Urine Clarity Clear (Clear); Urine Color Colorless (Yellow); Urine Protein, UAD Negative (Negative); Urine Specific Gravity 1.007 (1.001-1.035); Urine Urobilinogen Normal (Negative); Urine WBC <1 /hpf (0 - 5); Urine pH 6.5 (5.0-8.0)
[2023-03-09] MEDS ORDERED: IOHEXOL 350 MG/ML 100ML IJ ONE (16:21)
[2023-03-09 19:26] LABS: Chloride 104 mmol/L (98-107); Potassium 3.7 mmol/L (3.5-5.1); Sodium 136 mmol/L (136-145)
[2023-03-09 19:27] LABS: Anion Gap 6 (5-15); Calcium 8.8 mg/dL (8.5-10.1); Carbon Dioxide 26 mmol/L (20-30)
[2023-03-09 19:32] LABS: Glucose 109 mg/dL (74-106)
[2023-03-09 19:33] LABS: INR 1.18 (0.9-1.15); Prothrombin Time 12.3 sec (9.3-11.8)
[2023-03-09 19:34] LABS: BUN/Creatinine Ratio 7.7 (10.0-20.0); Blood Urea Nitrogen < 5 mg/dL (9-23)
[2023-03-10] VITALS (11 sets, daily range): BP systolic 117–136; BP diastolic 72–87; PULSE 78–108; RESP 16–22; TEMP 97.1–100.9; O2SAT 95–100
[2023-03-10] MEDS: HYDROmorphone HCL 2 MG/ML VL/or syr IV PRN ×5 (00:13→16:16)
[2023-03-10] MEDS: ENOXAPARIN SOD 120 MG/0.8 ML SYRINGE SC SCH ×3 (00:27→21:41)
[2023-03-10] MEDS: SODIUM CHLORIDE 0.9% 1,000 ML IV SCH ×2 (01:36→05:15)
[2023-03-10] MEDS: metroNIDAZOLE 500MG/100ML 100 ML IV SCH ×3 (05:57→21:41)
[2023-03-10 07:25] LABS: Hematocrit 27.7 % (36.0-46.0); Hemoglobin 9.5 g/dL (12.2-16.2); Mean Corpuscular Hemoglobin 25.2 pg (28.0-32.0); Mean Corpuscular Hgb Conc. 34.2 g/dL (32.0-36.0); Mean Corpuscular Volume 73.6 fL (80.0-100.0); Red Blood Cells 3.76 10^6/uL (4.0-5.20); Red Cell Distribution Width 16.2 % (11.8-14.3); White Blood Cell 8.9 10^3/uL (4.4-10.8)
[2023-03-10 07:32] LABS: Band Neutrophils % (manual) 0; Basophils % (manual) 0 (0.0-2.0); Blast Cells 0; Metamyelocytes % 0; Promyelocytes % 0; Reactive Lymphocytes 0
[2023-03-10] MEDS: FOLIC ACID 1 MG TAB PO SCH (10:13)
[2023-03-10] MEDS: cefTRIAXone 1GM/50ML D5W 50 ML IV SCH (10:13)
[2023-03-10] MEDS ORDERED: ALBUTEROL MEDNEB 2.5 mg/3ml NEB ONE ×2 (11:42→18:23)
[2023-03-10 12:36] LABS: Eosinophils % (manual) 2 (0-7); Lymphocytes % (manual) 8 (10.0-50.0); Monocytes % (manual) 9 (0-12); Myelocytes % 2
[2023-03-10 12:37] LABS: Platelet Estimate Adequate
[2023-03-10] MEDS: IPRATROPIUM BROM 0.5 MG/2.5ML INH SOL NEB SCH ×2 (12:39→18:20)
[2023-03-10] MEDS: ALBUTEROL SULF 2.5 MG/0.5ML(0.5%) NEB SOLN NEB SCH ×2 (12:39→18:20)
[2023-03-10] MEDS: OXYCODONE W/ ACETAMINOPHEN 5/325MG TABLET PO PRN ×2 (13:48→20:34)
[2023-03-10] MEDS: ONDANSETRON HCL 4 MG/2 ML VIAL IV PRN ×2 (13:57→20:34)
[2023-03-10] MEDS ORDERED: POLYETHYLENE GLYCOL 17 GM PWDR PO ONE (15:00)
[2023-03-10] MEDS ORDERED: LACTULOSE 20Gm/30ML SOLN PO PRN (15:00)
[2023-03-11] VITALS (10 sets, daily range): BP systolic 114–125; BP diastolic 73–82; PULSE 77–106; RESP 16–22; TEMP 97.9–98.8; O2SAT 93–100
[2023-03-11] MEDS: HYDROmorphone HCL 2 MG/ML VL/or syr IV PRN ×2 (01:01→08:40)
[2023-03-11] MEDS: OXYCODONE W/ ACETAMINOPHEN 5/325MG TABLET PO PRN ×2 (04:39→12:07)
[2023-03-11] MEDS: ONDANSETRON HCL 4 MG/2 ML VIAL IV PRN ×3 (04:39→13:28)
[2023-03-11] MEDS: metroNIDAZOLE 500MG/100ML 100 ML IV SCH ×2 (05:48→13:17)
[2023-03-11 07:00] LABS: Chloride 105 mmol/L (98-107); Potassium 3.5 mmol/L (3.5-5.1); Sodium 138 mmol/L (136-145)
[2023-03-11 07:01] LABS: Anion Gap 5 (5-15); Calcium 8.6 mg/dL (8.5-10.1); Carbon Dioxide 28 mmol/L (20-30)
[2023-03-11 07:05] LABS: Hemoglobin 8.9 g/dL (12.2-16.2); Lymphocytes # (auto) 0.7 10 ^3/uL (0.4-5.4); Lymphocytes % (auto) 9.9 % (10.0-50.0); Neutrophils # (auto) 5.7 10 ^3/uL (1.6-8.6)
[2023-03-11 07:06] LABS: Glucose 91 mg/dL (74-106)
[2023-03-11 07:07] LABS: BUN/Creatinine Ratio 6.8 (10.0-20.0); Blood Urea Nitrogen < 5 mg/dL (9-23)
[2023-03-11 07:08] LABS: Basophils # (auto) 0 10 ^3/uL (0-0.2); Basophils % (auto) 0.4 % (0.0-2.0); Eosinophils # (auto) 0.1 10 ^3/uL (0-0.8); Eosinophils % (auto) 1.3 % (0.0-7.0); Hematocrit 26.3 % (36.0-46.0); Mean Corpuscular Hemoglobin 24.6 pg (28.0-32.0); Mean Corpuscular Hgb Conc. 33.8 g/dL (32.0-36.0); Mean Corpuscular Volume 72.8 fL (80.0-100.0); Monocytes # (auto) 0.8 10 ^3/uL (0-1.3); Monocytes % (auto) 10.8 % (0.0-12.0); Neutrophils % (auto) 77.6 % (37.0-80.0); Nucleated Red Blood Cells % 0.1 %; Red Blood Cells 3.61 10^6/uL (4.0-5.20); Red Cell Distribution Width 16.1 % (11.8-14.3); White Blood Cell 7.4 10^3/uL (4.4-10.8)
[2023-03-11] MEDS: IPRATROPIUM BROM 0.5 MG/2.5ML INH SOL NEB SCH ×2 (07:51→11:30)
[2023-03-11] MEDS: ALBUTEROL SULF 2.5 MG/0.5ML(0.5%) NEB SOLN NEB SCH ×2 (07:52→11:30)
[2023-03-11] MEDS: cefTRIAXone 1GM/50ML D5W 50 ML IV SCH (08:38)
[2023-03-11] MEDS: ENOXAPARIN SOD 120 MG/0.8 ML SYRINGE SC SCH (08:39)
[2023-03-11] MEDS: FOLIC ACID 1 MG TAB PO SCH (08:39)
[2023-03-11] MEDS ORDERED: AZITHROMYCIN 500MG/ 250ML 250 ML IV SCH (10:00)
[2023-03-11] MEDS ORDERED: POLYETHYLENE GLYCOL 17 GM PWDR PO SCH (10:00)
[2023-03-11] MEDS ORDERED: PERCOT PO (13:57)
[2023-03-11] MEDS ORDERED: LEVO500T91 PO (13:57)
== END 2023-03-11 15:30 | disposition home or self-care (01) | DRG 254 ==
LOC: ER 10:16 → OVERFLOW 16:52 → WEST WING 03-06 19:09 → TELE-WESTW 03-07 14:52
PROVIDERS: ADMIT Nurse Practitioner Family; ATTEND Nurse Practitioner Acute Care
DX: I88.0 Nonspecific mesenteric lymphadenitis (principal); I26.99 Other pulmonary embolism without acute cor pulmonale; D57.1 Sickle-cell disease without crisis; E66.01 Morbid (severe) obesity due to excess calories; J90 Pleural effusion, not elsewhere classified; J98.11 Atelectasis; Z20.822 Contact with and (suspected) exposure to COVID-19; F17.210 Nicotine dependence, cigarettes, uncomplicated; N39.0 Urinary tract infection, site not specified; Z76.5 Malingerer [conscious simulation]; Z68.33 Body mass index [BMI] 33.0-33.9, adult; Z79.01 Long term (current) use of anticoagulants; Z82.49 Family history of ischemic heart disease and other diseases of the circulatory system; Z83.2 Family history of diseases of the blood and blood-forming organs and certain disorders involving the immune mechanism; Z83.3 Family history of diabetes mellitus; Z90.49 Acquired absence of other specified parts of digestive tract
CPT/HCPCS: 36415; 71045; 71275; 74176; 80048; 80053; 80061; 81001; 83605; 83615; 83690; 84443; 84484; 84702; 85007; 85025; 85027; 85045; 85379; 85610; 85652; 85730; 86141; 86880; 87040; 87426; 93005; 93970; 94640; G0378; J0696; J1885; J2405; J3490

== ENCOUNTER 2024-02-08 13:55 | Inpatient (IN) | payer MEDICAID ==
[~2024-02-08] VITALS: Ht 182.9 cm; Wt 119.0 kg
[~2024-02-08 13:55] MED LIST changes: +AZIT-185 PO; -AZIT-81 PO; +LEVO500T91 PO
[2024-02-08 15:20] LABS: Eosinophils # (auto) 0.1 10 ^3/uL (0-0.8); Eosinophils % (auto) 0.9 % (0.0-7.0); Monocytes # (auto) 0.6 10 ^3/uL (0-1.3); Monocytes % (auto) 6.9 % (0.0-12.0)
[2024-02-08 15:22] LABS: Basophils # (auto) 0 10 ^3/uL (0-0.2); Basophils % (auto) 0.6 % (0.0-2.0); Hematocrit 36.1 % (36.0-46.0); Hemoglobin 12.2 g/dL (12.2-16.2); Lymphocytes # (auto) 2.5 10 ^3/uL (0.4-5.4); Lymphocytes % (auto) 29.2 % (10.0-50.0); Mean Corpuscular Hemoglobin 24.7 pg (28.0-32.0); Mean Corpuscular Hgb Conc. 33.7 g/dL (32.0-36.0); Mean Corpuscular Volume 73.3 fL (80.0-100.0); Neutrophils # (auto) 5.4 10 ^3/uL (1.6-8.6); Neutrophils % (auto) 62.4 % (37.0-80.0); Nucleated Red Blood Cells % 0.3 %; Platelet Count (auto) 261 10^3/uL (140-450); Red Blood Cells 4.93 10^6/uL (4.0-5.20); Red Cell Distribution Width 16.6 % (11.8-14.3); White Blood Cell 8.6 10^3/uL (4.4-10.8)
[2024-02-08 16:21] LABS: Chloride 109 mmol/L (98-107); Sodium 141 mmol/L (136-145)
[2024-02-08 16:22] LABS: Anion Gap 5 (5-15); Carbon Dioxide 27 mmol/L (20-31)
[2024-02-08 16:23] LABS: Calcium 9.6 mg/dL (8.7-10.4)
[2024-02-08 16:27] LABS: BUN/Creatinine Ratio 7.9 (10.0-20.0); Blood Urea Nitrogen 7 mg/dL (9-23); Glucose 72 mg/dL (74-106)
[2024-02-08] MEDS: SODIUM CHLORIDE 0.9% 1,000 ML IV ONE (17:07)
[2024-02-08 17:14] VITALS: PULSE 72; RESP 18; O2SAT 97
[2024-02-08] MEDS ORDERED: APIX5TAB PO (17:29)
[2024-02-08] MEDS: ONDANSETRON HCL 4 MG/2 ML VIAL IV ONE (17:56)
[2024-02-08] MEDS: HYDROmorphone HCL 2 MG/ML VL/or syr IV ONE (17:57)
[2024-02-08 18:15] LABS: Urine Bacteria FEW /hpf (None Seen); Urine Blood Negative /uL (Negative); Urine Clarity Clear (Clear); Urine Color Light-Yellow (Yellow); Urine Protein, UAD Negative (Negative); Urine Specific Gravity 1.013 (1.001-1.035); Urine Urobilinogen Normal (Negative); Urine WBC 1 /hpf (0 - 5); Urine pH 5.5 (5.0-9.0)
[2024-02-08] MEDS: ONDANSETRON HCL 4 MG/2 ML VIAL IV PRN (21:24)
[2024-02-08] MEDS: HYDROmorphone HCL 2 MG/ML VL/or syr IV PRN (21:24)
[2024-02-09 05:13] LABS: Eosinophils # (auto) 0.1 10 ^3/uL (0-0.8); Eosinophils % (auto) 1.3 % (0.0-7.0); Lymphocytes # (auto) 1.8 10 ^3/uL (0.4-5.4); White Blood Cell 6.4 10^3/uL (4.4-10.8)
[2024-02-09 05:15] LABS: Basophils # (auto) 0.1 10 ^3/uL (0-0.2); Basophils % (auto) 0.9 % (0.0-2.0); Hematocrit 31.4 % (36.0-46.0); Hemoglobin 10.7 g/dL (12.2-16.2); Lymphocytes % (auto) 28.4 % (10.0-50.0); Mean Corpuscular Hemoglobin 25.1 pg (28.0-32.0); Mean Corpuscular Hgb Conc. 34.2 g/dL (32.0-36.0); Mean Corpuscular Volume 73.5 fL (80.0-100.0); Monocytes # (auto) 0.4 10 ^3/uL (0-1.3); Monocytes % (auto) 7.1 % (0.0-12.0); Neutrophils % (auto) 62.3 % (37.0-80.0); Nucleated Red Blood Cells % 0.2 %; Platelet Count (auto) 202 10^3/uL (140-450); Red Blood Cells 4.27 10^6/uL (4.0-5.20); Red Cell Distribution Width 16.5 % (11.8-14.3)
[2024-02-09 05:19] LABS: Anion Gap 6 (5-15); Carbon Dioxide 25 mmol/L (20-31); Chloride 109 mmol/L (98-107); Potassium 3.7 mmol/L (3.5-5.1); Sodium 140 mmol/L (136-145)
[2024-02-09 05:20] LABS: Calcium 9.4 mg/dL (8.7-10.4)
[2024-02-09 05:25] LABS: BUN/Creatinine Ratio 8.5 (10.0-20.0); Blood Urea Nitrogen 8 mg/dL (9-23); Glucose 84 mg/dL (74-106)
[2024-02-09] MEDS: SODIUM CHLORIDE 0.9% 500 ML IV ONE (06:54)
[2024-02-09 08:08] VITALS: PULSE 75; RESP 18; O2SAT 99
[2024-02-09] MEDS: HYDROcodone-ACET 5/325MG TAB PO PRN (10:14)
[2024-02-09] MEDS: APIXABAN 5 MG TAB PO SCH (10:14)
[2024-02-09] MEDS: OXYCODONE W/ ACETAMINOPHEN 5/325MG TABLET PO ONE (13:09)
[2024-02-09] MEDS: SODIUM CHLORIDE 0.9% 1,000 ML IV SCH (13:15)
[2024-02-09] MEDS: HYDROmorphone HCL 2 MG/ML VL/or syr IV PRN (17:46)
[2024-02-09 20:00] VITALS: RESP 14
[2024-02-10 09:21] VITALS: PULSE 78; RESP 20; O2SAT 98
[2024-02-10 12:59] VITALS: BP 128/75; PULSE 77; RESP 16; RESP 18; TEMP 98.4; O2SAT 100
[2024-02-10] MEDS: LACTULOSE 20Gm/30ML SOLN PO ONE ×3 (14:13→18:26)
[2024-02-10] MEDS ORDERED: TIZA-142 PO (14:16)
[2024-02-10 15:41] LABS: Urine Bacteria None Seen /hpf (None Seen)
[2024-02-10 16:44] LABS: Urine Blood 1+ /uL (Negative); Urine Clarity Clear (Clear); Urine Color Colorless (Yellow); Urine Protein, UAD 3+ (Negative); Urine Specific Gravity 1.013 (1.001-1.035); Urine Urobilinogen Normal (Negative); Urine WBC <1 /hpf (0 - 5)
[2024-02-10 17:00] VITALS: BP 125/79; PULSE 70; RESP 16; TEMP 97.6; O2SAT 97
[2024-02-10 21:00] VITALS: BP 140/83; PULSE 64; RESP 16; TEMP 97.9; O2SAT 97
[2024-02-10] MEDS: HYDROcodone-ACET 5/325MG TAB PO PRN (21:31)
[2024-02-11] VITALS (8 sets, daily range): BP systolic 130–149; BP diastolic 29–85; PULSE 17–69; RESP 16–18; TEMP 97.9–98.8; O2SAT 96–99
[2024-02-11 07:16] LABS: Basophils # (auto) 0 10 ^3/uL (0-0.2); Eosinophils # (auto) 0.2 10 ^3/uL (0-0.8); Lymphocytes # (auto) 2.3 10 ^3/uL (0.4-5.4); Monocytes # (auto) 0.3 10 ^3/uL (0-1.3); Neutrophils # (auto) 2.8 10 ^3/uL (1.6-8.6); Red Cell Distribution Width 16.4 % (11.8-14.3); White Blood Cell 5.7 10^3/uL (4.4-10.8)
[2024-02-11 07:18] LABS: Basophils % (auto) 0.7 % (0.0-2.0); Eosinophils % (auto) 3.6 % (0.0-7.0); Hematocrit 30.1 % (36.0-46.0); Hemoglobin 10.4 g/dL (12.2-16.2); Mean Corpuscular Hemoglobin 25.7 pg (28.0-32.0); Mean Corpuscular Hgb Conc. 34.4 g/dL (32.0-36.0); Mean Corpuscular Volume 74.7 fL (80.0-100.0); Monocytes % (auto) 5.7 % (0.0-12.0); Nucleated Red Blood Cells % 0.4 %; Platelet Count (auto) 182 10^3/uL (140-450); Red Blood Cells 4.03 10^6/uL (4.0-5.20)
[2024-02-11 07:25] LABS: Anion Gap 6 (5-15); Carbon Dioxide 27 mmol/L (20-31); Chloride 109 mmol/L (98-107); Potassium 3.6 mmol/L (3.5-5.1); Sodium 142 mmol/L (136-145)
[2024-02-11 07:27] LABS: Calcium 9.1 mg/dL (8.7-10.4)
[2024-02-11 07:31] LABS: Glucose 83 mg/dL (74-106)
[2024-02-11 07:33] LABS: BUN/Creatinine Ratio 6.8 (10.0-20.0); Blood Urea Nitrogen < 5 mg/dL (9-23)
[2024-02-11 12:13] LABS: Hepatitis B Surface Antigen Negative (Negative)
[2024-02-11 12:34] LABS: Hepatitis C Antibody Negative (Negative)
[2024-02-11] MEDS: OXYCODONE W/ ACETAMINOPHEN 5/325MG TABLET PO SCH (12:37)
[2024-02-11] MEDS: LACTULOSE 20Gm/30ML SOLN PO PRN (13:52)
[2024-02-11] MEDS: HYDROmorphone HCL 2 MG/ML VL/or syr IV PRN (15:29)
[2024-02-11] MEDS ORDERED: HYDROmorphone HCL 2 MG/ML VL/or syr IV PRN (16:00)
[2024-02-11 21:51] LABS: Urine Bacteria FEW /hpf (None Seen); Urine Blood Negative /uL (Negative); Urine Clarity Turbid (Clear); Urine Color Light-Yellow (Yellow); Urine Protein, UAD Negative (Negative); Urine Specific Gravity 1.008 (1.001-1.035); Urine Urobilinogen Normal (Negative); Urine WBC 1 /hpf (0 - 5)
[2024-02-12 01:00] VITALS: BP 144/96; PULSE 64; RESP 16; TEMP 97.9; O2SAT 97
[2024-02-12 04:56] VITALS: BP 128/80; PULSE 85; RESP 18; TEMP 98; O2SAT 98
[2024-02-12 08:00] VITALS: PULSE 17
[2024-02-12 08:34] VITALS: BP 125/77; PULSE 71; RESP 16; TEMP 98.6; O2SAT 99
[2024-02-12 09:53] VITALS: BP 139/94; PULSE 61; RESP 16
[2024-02-12] MEDS ORDERED: LACT10SO3 PO (10:34)
[2024-02-12] MEDS: POLYETHYLENE GLYCOL 17 GM PWDR PO ONE (11:02)
[2024-02-12] MEDS: BISACODYL 10 MG RECT SUPP PR ONE (11:02)
[2024-02-12] MEDS ORDERED: CARI250T PO (12:03)
[2024-02-12] MEDS ORDERED: TRAZ-228 PO (12:05)
== END 2024-02-12 12:30 | disposition home or self-care (01) | DRG 662 ==
LOC: ER 14:11 → OVERFLOW 17:24 → ER 17:26 → WEST WING 02-10 12:50 → UNDODISIN 02-10 12:50
PROVIDERS: ADMIT Registered Nurse General Practice; ATTEND Student in an Organized Health Care Education/Training Program
DX: D57.00 Hb-SS disease with crisis, unspecified (principal); F17.290 Nicotine dependence, other tobacco product, uncomplicated; K59.03 Drug induced constipation; T40.2X5A Adverse effect of other opioids, initial encounter; Z79.01 Long term (current) use of anticoagulants; Z87.442 Personal history of urinary calculi; Z86.711 Personal history of pulmonary embolism; Z90.49 Acquired absence of other specified parts of digestive tract; Z86.718 Personal history of other venous thrombosis and embolism
CPT/HCPCS: 36415; 71045; 80048; 81001; 83615; 85025; 85045; 86803; 87081; 87340; 93971; 96361; 96374; 96375; G0378; J2405